=== PATIENT | male | born 1975 | race Caucasian/White ===

== ENCOUNTER 2016-06-28 09:10 | Emergency (ER) | payer OTHER ==
[~2016-06-28 09:10] MED LIST: ASPIRIN PO; BLOOD PRESSURE PO; CELEXA PO; FLEXERIL10 M1 PO; LIPITOR20 MG PO; LISINOPRIL PO; LISINOPRIL20 MG PO; LORTAB 5/500 TA1 TA1 PO; LORTAB 5/500 TA1 TA2; MULTI-DAY1 TAB PO; MULTI-VITAMIN1 EAC1 PO; NAPROXEN PO; NEPHROCAPS1 CAP PO; NO MEDICATIONS; PAROXETINE HCL20 MG PO; PAXIL PO; PEN-VEE K PO; PERCOCET5/325 PO; PROTONIX PO; SILVADENE; SIMVASTATIN10 MG PO; THIAMINE HCL100 M1 PO; ULTRAM PO; VOLTAREN50 MG PO; VOLTAREN75 MG PO; ZANTAC150 MG PO
== END 2016-06-28 09:26 | disposition home or self-care (01) ==
LOC: SED 09:10
DX: M67.442 Ganglion, left hand (principal); F41.9 Anxiety disorder, unspecified; F17.200 Nicotine dependence, unspecified, uncomplicated; Z98.890 Other specified postprocedural states
CPT/HCPCS: 99283

== ENCOUNTER 2016-07-04 20:40 | Emergency (ER) | payer OTHER | END 2016-07-04 21:05 | disposition short-term general hospital (02) | LOC: CFTX 20:40 | DX: L03.114 Cellulitis of left upper limb (principal); F17.210 Nicotine dependence, cigarettes, uncomplicated; I10 Essential (primary) hypertension; E78.5 Hyperlipidemia, unspecified; F41.9 Anxiety disorder, unspecified | CPT/HCPCS: 99282; 99285 ==